=== PATIENT | male | born 1995 | race Asian ===

== ENCOUNTER 2023-12-02 14:08 | Inpatient (IN) | payer OTHER ==
[~2023-12-02] VITALS: Ht 170.2 cm; Wt 64.9 kg
[2023-12-02 14:41] LABS: BASOPHILS % (AUTO) 0.2 % (0.0-2.0); HEMATOCRIT 43.7 % (36.7-47.1); HEMOGLOBIN 14.9 g/dL (12.5-16.3); LYMPHOCYTES # (AUTO) 0.6 K/uL (0.8-4.8); LYMPHOCYTES % (AUTO) 2.7 % (20.5-51.5); MEAN CORPUSCULAR HEMOGLOBIN 31.6 uug (23.8-33.4); MEAN CORPUSCULAR HGB CONC 34 g/dL (32.5-36.3); MONOCYTES # (AUTO) 1.3 K/uL (0.1-1.30); MONOCYTES % (AUTO) 5.6 % (0.0-11.0); NEUTROPHILS # (AUTO) 21.8 K/uL (1.8-8.9); NEUTROPHILS % (AUTO) 91.5 % (38.5-71.5); PLATELET COUNT (AUTO) 261 K/uL (152-348); RED CELL DISTRIBUTION WIDTH 13.5 % (12.1-16.2); WHITE BLOOD COUNT (AUTO) 23.9 K/uL (3.6-10.2)
[2023-12-02] MEDS ORDERED: PIPERACILLIN/TAZOBACTAM/D5W 50 ML IV ONE (14:43)
[2023-12-02] MEDS ORDERED: VANCOMYCIN IV 200 ML ONE (14:43)
[2023-12-02] MEDS ORDERED: CLINDAMYCIN 600 MG PIGGYBACK**ER OMNI IV ONE ×3 (14:44→23:39)
[2023-12-02 14:45] LABS: DIFFERENTIAL COMMENT 1
[2023-12-02] MEDS: CLINDAMYCIN PHOSPHATE IV 600 MG in IV DEXTROSE 5% 100 ML IV ONE (14:45)
[2023-12-02] MEDS: IV NORMAL SALINE 1000 ML BAG IV ONE (14:45)
[2023-12-02 14:49] LABS: CALCIUM 8.4 mg/dL (8.5-10.1); CARBON DIOXIDE 26 mmol/L (21-32); CHLORIDE 97 mmol/L (98-107); CREATININE 1.2 mg/dL (0.6-1.3); GLUCOSE 176 mg/dL (74-106); POTASSIUM 3.7 mmol/L (3.5-5.1); SODIUM SERUM 133 mmol/L (136-145); UREA NITROGEN, BLOOD 15 mg/dL (7-18)
[2023-12-02 15:06] LABS: ALANINE AMINOTRANSFERASE 56 U/L (16-63); ALBUMIN 2.9 g/dL (3.4-5.0); ALKALINE PHOSPHATASE 64 U/L (50-136); ASPARTATE AMINOTRANSFERASE 65 U/L (15-37); BILIRUBIN,DIRECT 0.3 mg/dL (0.0-0.2); BILIRUBIN,TOTAL 0.7 mg/dL (0.2-1.0); NT-PRO BNP 11 pg/mL (0-125); TOTAL PROTEIN, SERUM 7.1 g/dL (6.4-8.2)
[2023-12-02] MEDS: PIPERACILLIN SODIUM/TAZOBACTAM 3.375 G in IV DEXTROSE 5% 50 ML IV ONE (15:26)
[2023-12-02] MEDS ORDERED: PROP10TA68 PO (15:59)
[2023-12-02] MEDS ORDERED: VENL75TA4 (15:59)
[2023-12-02] MEDS ORDERED: QUET400T13 PO (15:59)
[2023-12-02] MEDS: VANCOMYCIN IV 1,000 MG in IV DEXTROSE 5% 250 ML IV ONE (16:10)
[2023-12-02] MEDS ORDERED: DEXAMETHASONE SOD PHOSPHATE 10 MG INJ ONE (16:15)
[2023-12-02] MEDS: DEXAMETHASONE SOD PHOSPHATE 4 MG INJ IV ONE (16:20)
[2023-12-02] MEDS ORDERED: levoFLOXacin 750MG/D5W 150 ML IV ONE (16:21)
[2023-12-02] MEDS ORDERED: FENTANYL CITRATE 100 MCG/2 ML AMPUL ONE ×3 (16:21→19:39)
[2023-12-02] MEDS: FENTANYL CITRATE 100 MCG/2 ML AMPUL IV ONE ×3 (16:26→19:47)
[2023-12-02 17:13] LABS: *BILIRUBIN,URIN NEGATIVE (NEGATIVE); *CLARITY,URINE CLEAR (CLEAR); *COLOR,URINE YELLOW (YELLOW); *KETONES,URINE NEGATIVE (NEGATIVE); *PROTEIN,URINE 1+ (NEGATIVE); *UROBILINOGEN,URINE 0.2 E.U./dl (NORMAL); LEUKOCYTE ESTERASE ,URINE NEGATIVE (NEGATIVE); NITRITE, URINE NEGATIVE (NEGATIVE); PH,URINE 6.5 (5.0-8.0); UGLUCOSE NEGATIVE (NEGATIVE)
[2023-12-02 17:19] LABS: *BLOOD, URINE TRACE (NEGATIVE)
[2023-12-02 17:29] LABS: RBC,URINE NONE SEEN /HPF (0-3)
[2023-12-02 17:30] LABS: BACTERIA,URINE NONE SEEN /HPF (NONE SEEN); SQUAMOUS EPITHELIAL CELL,UR FEW /HPF (NONE SEEN); WBC,URINE 0-3 /HPF (0-3)
[2023-12-02 17:52] LABS: *AMPHETAMINE, URINE NEGATIVE (NEGATIVE); *BARBITURATE, URINE NEGATIVE (NEGATIVE); *BENZODIAZEPINE, URINE POSITIVE (NEGATIVE); *CANNABINOID, URINE POSITIVE (NEGATIVE); *COCCAINE, URINE NEGATIVE (NEGATIVE); *OPIATE, URINE NEGATIVE (NEGATIVE); *PHENCYCLIDINE SCREEN,URINE POSITIVE (NEGATIVE); FENTANYL, URINE POSITIVE (NEGATIVE)
[2023-12-02] MEDS: levoFLOXacin 750 MG/D5W 150 ML PIGGYBACK IV ONE (18:02)
[2023-12-02] MEDS ORDERED: ACETAMINOPHEN 650 MG SUPP.RECT RC PRN (21:00)
[2023-12-02] MEDS ORDERED: ONDANSETRON 4 MG/2 ML VIAL IV PRN (21:00)
[2023-12-02] MEDS ORDERED: IOHEXOL 350 100 ML INFUS..BTL ONE (21:10)
[2023-12-02] MEDS ORDERED: SWABABLE VALVE TRANSFER SET EA MC ONE (21:10)
[2023-12-02] MEDS ORDERED: IV NORMAL SALINE 250 ML IV ONE (21:10)
[2023-12-02] MEDS ORDERED: MORPHINE SULFATE 2 MG/1 ML DISP.SYRIN ONE (22:03)
[2023-12-02 23:11] VITALS: BP 106/68; TEMP 98.8; O2SAT 99
[2023-12-02] MEDS: MORPHINE SULFATE 2 MG/1 ML DISP.SYRIN IV PRN (23:33)
[2023-12-02] MEDS ORDERED: IV DEXTROSE 5%-0.9%NS+20MeqKCL 1,000 ML IV ONE (23:37)
[2023-12-03 00:30] VITALS: BP 112/55; TEMP 97.1; TEMP 98.1; O2SAT 93
[2023-12-03] MEDS: LORAZEPAM 2 MG/1 ML VIAL IV PRN (00:38)
[2023-12-03] MEDS: CLINDAMYCIN PHOSPHATE IV 600 MG in IV DEXTROSE 5% 100 ML IV SCH ×2 (01:01→08:19)
[2023-12-03] MEDS: POTASSIUM CHLORIDE 20 MEQ in IV D5/ 0.9% NACL 1,000 ML IV PRN (01:01)
[2023-12-03 04:20] VITALS: BP 114/78; TEMP 96.4; O2SAT 98
[2023-12-03 07:29] VITALS: BP 116/77; TEMP 98.5; O2SAT 98
[2023-12-03] MEDS: PANTOPRAZOLE SODIUM 40 MG VIAL IV SCH (08:19)
[2023-12-03] MEDS: ENOXAPARIN SODIUM 40 MG/0.4 ML DISP.SYRIN SQ SCH (08:26)
[2023-12-03 08:28] LABS: HEMATOCRIT 41.1 % (36.7-47.1); HEMOGLOBIN 13.7 g/dL (12.5-16.3); LYMPHOCYTES # (AUTO) 0.4 K/uL (0.8-4.8); LYMPHOCYTES % (AUTO) 2.3 % (20.5-51.5); MEAN CORPUSCULAR HEMOGLOBIN 31.5 uug (23.8-33.4); MEAN CORPUSCULAR HGB CONC 33 g/dL (32.5-36.3); MEAN CORPUSCULAR VOLUME 94.7 fL (73.0-96.2); MONOCYTES # (AUTO) 0.8 K/uL (0.1-1.30); MONOCYTES % (AUTO) 4.7 % (0.0-11.0); NEUTROPHILS # (AUTO) 16.4 K/uL (1.8-8.9); PLATELET COUNT (AUTO) 205 K/uL (152-348); RED BLOOD CELL COUNT(AUTO) 4.34 MIL/uL (4.06-5.63); RED CELL DISTRIBUTION WIDTH 13.8 % (12.1-16.2); WHITE BLOOD COUNT (AUTO) 17.6 K/uL (3.6-10.2)
[2023-12-03 08:34] LABS: ALANINE AMINOTRANSFERASE 68 U/L (16-63); ALBUMIN 2.5 g/dL (3.4-5.0); ALKALINE PHOSPHATASE 54 U/L (50-136); ASPARTATE AMINOTRANSFERASE 51 U/L (15-37); BILIRUBIN,TOTAL 0.5 mg/dL (0.2-1.0); CALCIUM 8.6 mg/dL (8.5-10.1); CARBON DIOXIDE 26 mmol/L (21-32); CHLORIDE 108 mmol/L (98-107); CREATINE KINASE, TOTAL 348 U/L (39-308); CREATININE 0.9 mg/dL (0.6-1.3); GLUCOSE 140 mg/dL (74-106); MAGNESIUM 2.4 mg/dL (1.8-2.4); POTASSIUM 4.3 mmol/L (3.5-5.1); SODIUM SERUM 141 mmol/L (136-145); TOTAL PROTEIN, SERUM 6.7 g/dL (6.4-8.2); UREA NITROGEN, BLOOD 10 mg/dL (7-18)
[2023-12-03 08:37] LABS: DIFFERENTIAL COMMENT 1
[2023-12-03] MEDS ORDERED: HYDR50TA61 PO (10:45)
[2023-12-03] MEDS ORDERED: GABA600T12 PO ×3 (10:45→13:45)
[2023-12-03 11:57] VITALS: BP 110/67; TEMP 97.2; O2SAT 97
[2023-12-03] MEDS ORDERED: LORA0.5T48 PO (13:45)
[2023-12-03] MEDS ORDERED: ALPR2TAB7 PO (13:45)
[2023-12-03] MEDS ORDERED: SER (13:45)
[2023-12-03] MEDS: CHLORDIAZEPOXIDE HCL 25 MG CAPSULE PO SCH (14:16)
[2023-12-03 16:00] VITALS: BP 107/56; TEMP 97.6; O2SAT 98
[2023-12-03] MEDS: NEUTRA PHOS PACKET PO ONE (16:26)
[2023-12-03] MEDS ORDERED: PIPERACILLIN SODIUM/TAZOBACTAM 4.5 G in IV DEXTROSE 5% 50 ML IV SCH (17:00)
[2023-12-03] MEDS: NICOTINE 21 MG/24HR PATCH TD SCH (17:28)
[2023-12-03] MEDS: VANCOMYCIN IV 1,000 MG in IV DEXTROSE 5% 250 ML IV SCH (18:20)
[2023-12-03 19:11] LABS: HIV-1 p24 ANTIGEN NON REACTIVE (NONREACTIVE); HIV-1/2 ANTIBODY NON REACTIVE (NONREACTIVE)
[2023-12-03 20:30] VITALS: BP 119/69; TEMP 98.5; O2SAT 98
[2023-12-03] MEDS: MEROPENEM 1 G in IV NORMAL SALINE 100 ML IV SCH (22:05)
[2023-12-04] MEDS: diphenhydrAMINE 50 MG CAPSULE PO ONE (01:45)
[2023-12-04 06:00] VITALS: BP 115/70; TEMP 97.6; O2SAT 96
[2023-12-04] MEDS: PANTOPRAZOLE SODIUM 40 MG TABLET.DR PO SCH (06:37)
[2023-12-04 07:50] LABS: CALCIUM 8.4 mg/dL (8.5-10.1); PHOSPHOROUS 2.5 mg/dL (2.5-4.9); POTASSIUM 3.2 mmol/L (3.5-5.1)
[2023-12-04 08:01] VITALS: BP 128/74; TEMP 97.7; O2SAT 96
[2023-12-04] MEDS ORDERED: PROPRANOLOL HCL 10 MG TABLET PO PRN (08:15)
[2023-12-04 08:19] LABS: BASOPHILS % (AUTO) 0.1 % (0.0-2.0); EOSINOPHILS % (AUTO) 0.1 % (0.0-7.0); HEMATOCRIT 37.9 % (36.7-47.1); HEMOGLOBIN 12.9 g/dL (12.5-16.3); LYMPHOCYTES # (AUTO) 1.2 K/uL (0.8-4.8); LYMPHOCYTES % (AUTO) 8.6 % (20.5-51.5); MEAN CORPUSCULAR HEMOGLOBIN 32.1 uug (23.8-33.4); MEAN CORPUSCULAR HGB CONC 34 g/dL (32.5-36.3); MEAN CORPUSCULAR VOLUME 94.2 fL (73.0-96.2); MONOCYTES # (AUTO) 0.6 K/uL (0.1-1.30); MONOCYTES % (AUTO) 4.3 % (0.0-11.0); NEUTROPHILS # (AUTO) 11.9 K/uL (1.8-8.9); NEUTROPHILS % (AUTO) 86.9 % (38.5-71.5); PLATELET COUNT (AUTO) 230 K/uL (152-348); RED BLOOD CELL COUNT(AUTO) 4.02 MIL/uL (4.06-5.63); RED CELL DISTRIBUTION WIDTH 13.9 % (12.1-16.2); WHITE BLOOD COUNT (AUTO) 13.8 K/uL (3.6-10.2)
[2023-12-04 08:20] LABS: DIFFERENTIAL COMMENT 1
[2023-12-04] MEDS ORDERED: POTASSIUM CHLORIDE 20 MEQ TAB.PRT.SR PO ONE (09:45)
[2023-12-04] MEDS: POTASSIUM CHLORIDE 20 MEQ TAB.PRT.SR PO ONE (10:34)
[2023-12-04] MEDS: MORPHINE SULFATE 2 MG/1 ML DISP.SYRIN IV PRN (10:36)
[2023-12-04] MEDS ORDERED: hydrOXYzine HCL 25 MG TABLET PO PRN ×2 (11:15→12:30)
[2023-12-04] MEDS: CHLORDIAZEPOXIDE HCL 25 MG CAPSULE PO SCH (11:44)
[2023-12-04 11:59] VITALS: BP 105/64; TEMP 98.8; O2SAT 95
[2023-12-04] MEDS: GABAPENTIN 300 MG CAPSULE PO SCH ×2 (12:56→20:44)
[2023-12-04] MEDS: LORAZEPAM 1 MG TABLET PO PRN (14:17)
[2023-12-04] MEDS ORDERED: VITAMINS A AND D 5 GM UD PKT TP PRN (15:15)
[2023-12-04] MEDS ORDERED: VITAMINS A AND D OINT 42 GM TUBE TP PRN (15:15)
[2023-12-04 16:00] VITALS: BP 122/75; TEMP 98.9; O2SAT 99
[2023-12-04] MEDS ORDERED: CLINDAMYCIN PHOSPHATE IV 600 MG in IV DEXTROSE 5% 50 ML IV SCH (17:00)
[2023-12-04] MEDS: NICOTINE 21 MG/24HR PATCH TD ONE (19:02)
[2023-12-04 20:00] VITALS: BP 131/76; TEMP 100.5; O2SAT 92
[2023-12-04] MEDS: QUETIAPINE FUMARATE 200 MG TABLET PO SCH (20:44)
[2023-12-04] MEDS ORDERED: VENLAFAXINE 25 MG TABLET PO SCH (21:00)
[2023-12-04] MEDS ORDERED: ACETAMINOPHEN 325 MG TABLET-SA PATIENTS-PAIN ONLY PO PRN (21:15)
[2023-12-04] MEDS ORDERED: VENLAFAXINE 25 MG TABLET ONE (21:19)
[2023-12-04] MEDS: VENLAFAXINE 25 MG TABLET PO ONE (22:59)
[2023-12-05 04:06] LABS: HEPATITIS B CORE AB, TOTAL Negative (Negative); HEPATITIS B SURFACE AB, QUAL Reactive (.); HEPATITIS B SURFACE AG Negative (Negative); HEPATITIS C VIRUS ANTIBODY Non Reactive (Non Reactive)
[2023-12-05 06:00] VITALS: BP 113/70; TEMP 100.5; O2SAT 94
[2023-12-05] MEDS: ACETAMINOPHEN 325 MG TABLET PO PRN (06:21)
[2023-12-05 07:15] LABS: BASOPHILS % (AUTO) 0.1 % (0.0-2.0); EOSINOPHILS % (AUTO) 0.1 % (0.0-7.0); HEMATOCRIT 41.4 % (36.7-47.1); HEMOGLOBIN 14.1 g/dL (12.5-16.3); LYMPHOCYTES # (AUTO) 1.7 K/uL (0.8-4.8); LYMPHOCYTES % (AUTO) 9.5 % (20.5-51.5); MEAN CORPUSCULAR HEMOGLOBIN 32.3 uug (23.8-33.4); MEAN CORPUSCULAR HGB CONC 34 g/dL (32.5-36.3); MEAN CORPUSCULAR VOLUME 94.4 fL (73.0-96.2); MONOCYTES # (AUTO) 0.9 K/uL (0.1-1.30); MONOCYTES % (AUTO) 4.9 % (0.0-11.0); NEUTROPHILS # (AUTO) 15.6 K/uL (1.8-8.9); NEUTROPHILS % (AUTO) 85.4 % (38.5-71.5); PLATELET COUNT (AUTO) 234 K/uL (152-348); RED BLOOD CELL COUNT(AUTO) 4.38 MIL/uL (4.06-5.63); RED CELL DISTRIBUTION WIDTH 13.8 % (12.1-16.2); WHITE BLOOD COUNT (AUTO) 18.2 K/uL (3.6-10.2)
[2023-12-05 07:21] LABS: DIFFERENTIAL COMMENT 1
[2023-12-05] MEDS: VENLAFAXINE 25 MG TABLET PO SCH (08:26)
[2023-12-05 08:40] LABS: CALCIUM 8.5 mg/dL (8.5-10.1); CREATININE 1.1 mg/dL (0.6-1.3); POTASSIUM 3.5 mmol/L (3.5-5.1)
[2023-12-05 12:00] VITALS: BP 116/75; TEMP 98.7; O2SAT 96
[2023-12-05 16:00] VITALS: BP 134/82; TEMP 97.5; O2SAT 96
[2023-12-05 21:00] VITALS: BP 143/94; TEMP 97.8; O2SAT 99
[2023-12-05] MEDS ORDERED: CLINDAMYCIN PHOSPHATE IV 600 MG in IV DEXTROSE 5% 50 ML IV SCH (22:00)
[2023-12-05] MEDS ORDERED: CLINDAMYCIN PHOSPHATE IV 600 MG in IV DEXTROSE 5% 100 ML IV SCH (22:00)
== END 2023-12-05 21:10 | disposition short-term general hospital (02) | DRG 871 ==
LOC: ER 14:08 → TELE3 22:13 → MEDSURG3 12-04 09:33
PROVIDERS: ADMIT Internal Medicine; ATTEND Internal Medicine
DX: A41.9 Sepsis, unspecified organism (principal); G92.8 Other toxic encephalopathy; M62.82 Rhabdomyolysis; L03.114 Cellulitis of left upper limb; F33.2 Major depressive disorder, recurrent severe without psychotic features; M60.032 Infective myositis, left forearm; E44.0 Moderate protein-calorie malnutrition; T43.591A Poisoning by other antipsychotics and neuroleptics, accidental (unintentional), initial encounter; F19.10 Other psychoactive substance abuse, uncomplicated; Y92.810 Car as the place of occurrence of the external cause; Z88.1 Allergy status to other antibiotic agents; S51.832S Puncture wound without foreign body of left forearm, sequela; W26.8XXS Contact with other sharp object(s), not elsewhere classified, sequela; Z68.22 Body mass index [BMI] 22.0-22.9, adult; F16.10 Hallucinogen abuse, uncomplicated; F11.10 Opioid abuse, uncomplicated; F41.9 Anxiety disorder, unspecified; Z79.899 Other long term (current) drug therapy; R73.9 Hyperglycemia, unspecified; R00.0 Tachycardia, unspecified; F17.210 Nicotine dependence, cigarettes, uncomplicated
CPT/HCPCS: 36415; 70450; 71045; 73060; 73090; 76881; 83605; 83735; 84100; 84484; 85025; 85651; 85730; 86140; 86592; 86704; 86706; 86803; 87040; 87340; 87806; 93005; A4663; C1758; G0378; J1100; J1650; J1956; J2060; J2185; J2270; J2470; J2543; J3010; J3370; J3480; J3490; J7040; J7042; J7050; Q0163; Q9967